=== PATIENT | male | born 1975 | race American Indian/Alaskan Native ===

== ENCOUNTER 2021-07-13 16:38 | Emergency (ER) | payer OTHER ==
[2021-07-13 16:50] VITALS: BP 154/90
[2021-07-13] MEDS ORDERED: SODIUM CHLORIDE 0.9% 100 ML IVPB IV ONE (17:10)
--- NOTE | 2021-07-13 17:10 | Event Note ---
ED Screening Note Date of service: 07/13/21 Time: 17:08 ED Screening Note: 45-year-old -Pol[place] male with a past medical history of hypertension diabetes presents to the emergency room for a abscess to the left shoulder with pain. Patient states is been there for 3 weeks. Patient presents with fever tachycardic. This initial assessment/diagnostic orders/clinical plan/treatment(s) is/are subject to change based on patients health status, clinical progression and re- assessment by fellow clinical providers in the ED. Further treatment and workup at subsequent clinical providers discretion. Patient/guardian urged not to elope from the ED as their condition may be serious if not clinically assessed and managed. Initial orders include: Initial sepsis protocol has been ordered.
[2021-07-13] MEDS ORDERED: cephALEXin 500 MG CAP PO ONE (17:16)
[2021-07-13] MEDS ORDERED: SULFAMETHOXAZOLE/TRIMETHOPRIM 800/160MG DS TAB PO ONE (17:16)
[2021-07-13] MEDS ORDERED: TETANUS,DIPH,PERTUSS(ACELL) VACCINE 0.5 ML SYRINGE IM ONE (17:18)
--- NOTE | 2021-07-13 17:21 | Emergency Department Report ---
- General Chief complaint: Skin/Abscess/Foreign Body Stated complaint: BUMP ON LEFT SHOULDER PAINFUL Time Seen by Provider: 07/13/21 17:11 Source: patient Mode of arrival: Ambulatory Limitations: No Limitations - History of Present Illness Initial comments: Chief complaint: Abscess left shoulder HPI: This 45-year-old male history of insulin-dependent diabetes mellitus who presents with left upper back abscess which has been present for 2 weeks. No treatment attempted. Patient works as a long-tier truck driver. He wanted to wait until he returned to [place] before seeking treatment. Unknown last tetanus booster. He denies fever chills. Denies malaise. He does feels a pressure heaviness at the left upper back. No previous history of abscess. MD complaint: abscess/boil -: Gradual, week(s) (2 weeks) Tetanus Up to Date: unsure Location: back (Left upper back) Severity: moderate Quality: aching, dull Consistency: constant Improves with: none Worsens with: palpation Context: other (History of diabetes mellitus, lesion has been present for 2 weeks) Associated symptoms: denies other symptoms Treatments Prior to Arrival: none - Related Data Previous Rx's Medication Instructions Recorded Last Taken Type Acetaminophen/Codeine [Tylenol 1 tab PO Q6H PRN #10 tab 02/04/19 Unknown Rx /Codeine # 3 tab] Ibuprofen [Motrin 800 MG tab] 800 mg PO Q8HR PRN #14 tablet 02/04/19 Unknown Rx Penicillin Vk [Veetids TAB] 500 mg PO QID 7 Days #56 tablet 02/04/19 Unknown Rx Sulfamethoxazole/Trimethoprim 1 each PO BID 10 Days #20 tablet 07/13/21 Unknown Rx [Bactrim DS TAB] cephALEXin [Keflex] 500 mg PO QID 10 Days #40 capsule 07/13/21 Unknown Rx Allergies Allergy/AdvReac Type Severity Reaction Status Date / Time morphine Allergy Hives Verified 02/04/19 16:19 Abscess Boil HPI - HPI Chief Complaint: Skin/Abscess/Foreign Body Stated Complaint: BUMP ON LEFT SHOULDER PAINFUL Time Seen by Provider: 07/13/21 17:11 Home Medications: Previous Rx's Medication Instructions Recorded Last Taken Type Acetaminophen/Codeine [Tylenol 1 tab PO Q6H PRN #10 tab 02/04/19 Unknown Rx /Codeine # 3 tab] Ibuprofen [Motrin 800 MG tab] 800 mg PO Q8HR PRN #14 tablet 02/04/19 Unknown Rx Penicillin Vk [Veetids TAB] 500 mg PO QID 7 Days #56 tablet 02/04/19 Unknown Rx Sulfamethoxazole/Trimethoprim 1 each PO BID 10 Days #20 tablet 07/13/21 Unknown Rx [Bactrim DS TAB] cephALEXin [Keflex] 500 mg PO QID 10 Days #40 capsule 07/13/21 Unknown Rx Allergies/Adverse Reactions: Allergies Allergy/AdvReac Type Severity Reaction Status Date / Time morphine Allergy Hives Verified 02/04/19 16:19 ED Review of Systems ROS: Stated complaint: BUMP ON LEFT SHOULDER PAINFUL Other details as noted in HPI Comment: All other systems reviewed and negative Constitutional: denies: chills, fever, malaise Cardiovascular: denies: chest pain Gastrointestinal: denies: abdominal pain, nausea, vomiting, diarrhea Neurological: denies: headache, weakness ED Past Medical Hx - Past Medical History Previous Medical History?: Yes Hx Diabetes: Yes - Surgical History Past Surgical History?: Yes Additional Surgical History: left arm - Social History Smoking Status: Never Smoker Substance Use Type: None - Medications Home Medications: Home Medications Medication Instructions Recorded Confirmed Last Taken Type Acetaminophen/Codeine [Tylenol 1 tab PO Q6H PRN #10 tab 02/04/19 Unknown Rx /Codeine # 3 tab] Ibuprofen [Motrin 800 MG tab] 800 mg PO Q8HR PRN #14 tablet 02/04/19 Unknown Rx Penicillin Vk [Veetids TAB] 500 mg PO QID 7 Days #56 tablet 02/04/19 Unknown Rx Sulfamethoxazole/Trimethoprim 1 each PO BID 10 Days #20 tablet 07/13/21 Unknown Rx [Bactrim DS TAB] cephALEXin [Keflex] 500 mg PO QID 10 Days #40 capsule 07/13/21 Unknown Rx ED Physical Exam - General Limitations: No Limitations General appearance: alert, in no apparent distress - Head Head exam: Present: atraumatic, normocephalic - Eye Eye exam: Present: normal appearance - ENT ENT exam: Present: mucous membranes moist - Neck Neck exam: Present: normal inspection, full ROM - Respiratory Respiratory exam: Present: normal lung sounds bilaterally. Absent: respiratory distress, wheezes, rales, rhonchi - Cardiovascular Cardiovascular Exam: Present: regular rate, normal rhythm, normal heart sounds. Absent: systolic murmur, diastolic murmur, rubs, gallop - GI/Abdominal GI/Abdominal exam: Present: soft, normal bowel sounds - Rectal Rectal exam: Present: deferred - Extremities Exam Extremities exam: Present: normal inspection - Neurological Exam Neurological exam: Present: alert, oriented X3 - Psychiatric Psychiatric exam: Present: normal affect, normal mood - Skin Skin exam: Present: other (Left upper back: Over the scapula there is a 8 cm hyperpigmented indurated area slightly raised with 2 cm halo of surrounding erythema) ED Course Vital Signs 07/13/21 16:49 Temperature 102.7 F H Pulse Rate 115 H Respiratory 20 Rate Blood Pressure 154/90 [Right] O2 Sat by Pulse 97 Oximetry - I & D Left Back Type of Procedure: Complex Blade Size: 11 I & D Procedure: betadine prep Progress: Verbal informed consent obtained: My colleague assisted. Total of 10 mL 1% lidocaine without epinephrine injected. 3 cm vertical incision. Copious amount of pus expressed approximately 30 mL. I used tissue spreaders to break up inoculations with more expression of pus. 10cm iodoform quarter-inch packing with sterile dressing and tape covering. ED Medical Decision Making - Medical Decision Making Left upper back abscess history of insulin-dependent diabetes: Tetanus booster provided. Patient given p.o. antibiotics Bactrim Keflex in the emergency department. Significant amount of pus expressed 30 cc in total. Patient will return in 3 days for packing change. 10 days of antibiotics prescribed. Considering size and history of diabetes mellitus, antibiotic therapy is indicated. Critical care attestation.: If time is entered above; I have spent that time in minutes in the direct care of this critically ill patient, excluding procedure time. ED Disposition Clinical Impression: Back abscess, Insulin dependent diabetes mellitus Disposition: HOME / SELF CARE / HOMELESS Is pt being admited?: No Does the pt Need Aspirin: No Condition: Stable Instructions: Diabetes Mellitus Type 2 in Adults (ED), Skin Abscess, Incision and Drainage, Care After Additional Instructions: Please return in 3 days for packing change. Prescriptions: Sulfamethoxazole/Trimethoprim [Bactrim DS TAB] 1 each PO BID 10 Days #20 tablet cephALEXin [Keflex] 500 mg PO QID 10 Days #40 capsule Referrals: MAGNO RAMOS MD [Staff Physician] - 7-10 days
[2021-07-13] MEDS: IBUPROFEN 800 MG TAB PO ONE ×2 (17:54→18:26)
== END 2021-07-13 18:35 | disposition home or self-care (01) ==
LOC: ED 16:38
DX: L02.212 Cutaneous abscess of back [any part, except buttock and flank] (principal); E10.9 Type 1 diabetes mellitus without complications; Z98.890 Other specified postprocedural states; Z88.5 Allergy status to narcotic agent; Z79.899 Other long term (current) drug therapy
CPT/HCPCS: 82962; 90471; 90715; 99283

== ENCOUNTER 2021-07-16 16:58 | Emergency (ER) | payer OTHER ==
[2021-07-16 17:15] VITALS: BP 140/88
--- NOTE | 2021-07-16 17:53 | Emergency Department Report ---
ED General Adult HPI - General Chief complaint: Laceration/Recheck/Suture Stated complaint: recheck cyst Time Seen by Provider: 07/16/21 17:15 Source: patient Mode of arrival: Ambulatory Limitations: No Limitations - History of Present Illness Initial comments: Patient presents to the ER today for abscess recheck. Patient had an I&D about 3 days ago to an abscess located in his left upper back. Patient states that area was packed, and he was told that to return to have it rechecked. He states that he has been compliant with taking his antibiotics. He states that the area feels much better. He denies any fever or chills since being seen or any worsening symptoms. MD Complaint: Abscess recheck Severity scale (0 -10): 0 - Related Data Previous Rx's Medication Instructions Recorded Last Taken Type Acetaminophen/Codeine [Tylenol 1 tab PO Q6H PRN #10 tab 02/04/19 Unknown Rx /Codeine # 3 tab] Ibuprofen [Motrin 800 MG tab] 800 mg PO Q8HR PRN #14 tablet 02/04/19 Unknown Rx Penicillin Vk [Veetids TAB] 500 mg PO QID 7 Days #56 tablet 02/04/19 Unknown Rx Sulfamethoxazole/Trimethoprim 1 each PO BID 10 Days #20 tablet 07/13/21 Unknown Rx [Bactrim DS TAB] cephALEXin [Keflex] 500 mg PO QID 10 Days #40 capsule 07/13/21 Unknown Rx Allergies Allergy/AdvReac Type Severity Reaction Status Date / Time morphine Allergy Hives Verified 07/16/21 17:03 ED Review of Systems ROS: Stated complaint: recheck cyst Other details as noted in HPI Comment: All other systems reviewed and negative Constitutional: denies: chills, fever Eyes: denies: eye pain, eye discharge, vision change ENT: denies: ear pain, throat pain Respiratory: denies: cough, shortness of breath, SOB with exertion, SOB at rest, wheezing Cardiovascular: denies: chest pain, palpitations, dyspnea on exertion, edema, syncope, paroxysmal nocturnal dyspnea Gastrointestinal: denies: abdominal pain, nausea, diarrhea, constipation, hematemesis, hematochezia Genitourinary: denies: urgency, dysuria, hematuria, discharge, testicular pain, testicular mass Musculoskeletal: denies: back pain, joint swelling, arthralgia Skin: other (Abscess status post I&D). denies: rash, lesions, change in color, change in hair/nails, pruritus Neurological: denies: headache, weakness, numbness, paresthesias, confusion, abnormal gait, vertigo Psychiatric: denies: anxiety, depression, auditory hallucinations, visual hallucinations, homicidal thoughts, suicidal thoughts Hematological/Lymphatic: denies: easy bleeding, easy bruising ED Past Medical Hx - Past Medical History Hx Diabetes: Yes - Surgical History Additional Surgical History: left arm - Social History Smoking Status: Never Smoker Substance Use Type: None - Medications Home Medications: Home Medications Medication Instructions Recorded Confirmed Last Taken Type Acetaminophen/Codeine [Tylenol 1 tab PO Q6H PRN #10 tab 02/04/19 Unknown Rx /Codeine # 3 tab] Ibuprofen [Motrin 800 MG tab] 800 mg PO Q8HR PRN #14 tablet 02/04/19 Unknown Rx Penicillin Vk [Veetids TAB] 500 mg PO QID 7 Days #56 tablet 02/04/19 Unknown Rx Sulfamethoxazole/Trimethoprim 1 each PO BID 10 Days #20 tablet 07/13/21 Unknown Rx [Bactrim DS TAB] cephALEXin [Keflex] 500 mg PO QID 10 Days #40 capsule 07/13/21 Unknown Rx ED Physical Exam - General Limitations: No Limitations General appearance: alert, in no apparent distress - Head Head exam: Present: atraumatic, normocephalic, normal inspection - Eye Eye exam: Present: normal appearance, PERRL, EOMI Pupils: Present: normal accommodation - Neck Neck exam: Present: normal inspection, full ROM - Respiratory Respiratory exam: Present: normal lung sounds bilaterally. Absent: respiratory distress, wheezes, rales, rhonchi - Cardiovascular Cardiovascular Exam: Present: regular rate, normal rhythm, normal heart sounds - Back Exam Back exam: Present: other (Incised abscess noted to left upper back. Packing still in place and removed by me. Scant amount of drainage noted but overall wound appears to be healing well without any signs of worsening infection.) ED Course Vital Signs 07/16/21 17:03 Temperature 97.4 F L Pulse Rate 90 Respiratory 16 Rate Blood Pressure 140/88 [Right] O2 Sat by Pulse 90 Oximetry Critical care attestation.: If time is entered above; I have spent that time in minutes in the direct care of this critically ill patient, excluding procedure time. ED Disposition Clinical Impression: Abscess re-check Disposition: 01 HOME / SELF CARE / HOMELESS Is pt being admited?: No Does the pt Need Aspirin: No Condition: Stable Instructions: Wound Care, Adult Additional Instructions: Continue to keep the area clean daily with soap and water. Dry well after each cleaning. Put a dressing over the area. There is daily until he heals. It is important that you complete all antibiotics even if your symptoms are getting better. Follow-up with your PCP as needed. Return to the ER if anything changes or worsens. Referrals: PRIMARY CARE, [Referring] - 3-5 Days Time of Disposition: 17:53
== END 2021-07-16 18:16 | disposition home or self-care (01) ==
LOC: ED 16:58
DX: Z48.01 Encounter for change or removal of surgical wound dressing (principal); E11.9 Type 2 diabetes mellitus without complications; Z88.5 Allergy status to narcotic agent; Z79.899 Other long term (current) drug therapy
CPT/HCPCS: 99281

== ENCOUNTER 2022-03-01 10:54 | Emergency (ER) | payer OTHER ==
[2022-03-01] MEDS ORDERED: ACETAMINOPHEN 500 MG TAB PO ONE (13:21)
[2022-03-01] MEDS ORDERED: AMOXICILLIN/K CLAV 875/125MG TAB PO ONE (13:21)
--- NOTE | 2022-03-01 14:03 | Emergency Department Report ---
ED General Adult HPI - General Chief complaint: Earache Stated complaint: RT EAR ACHE Source: patient Mode of arrival: Ambulatory Limitations: No Limitations - History of Present Illness Initial comments: Patient is a 46-year-old -[place] male with a history of [id number] diabetes who presents to the ED with complaint of acute onset persistent right ear pain for the last 4 days. Patient states that the pain has been constant and persistent and has worsened in the last 2 days. Patient states that been taking [id number] medications for pain with no relief. Patient denies dizziness, syncope, hearing loss, fever, chills, cough, traumatic injury, nausea and vomiting, headache, nasal and sinus congestion or sore throat and neck pain. MD Complaint: right ear pain -: Sudden, days(s) (4) Location: face (right ear) Radiation: non-radiation Severity scale (0 -10): 10 Quality: aching, sharp Consistency: constant Improves with: none Worsens with: none Associated Symptoms: denies other symptoms. denies: confusion, chest pain, diaphoresis, fever/chills, headaches, loss of appetite, malaise, nausea/v omiting, rash, seizure, shortness of breath, syncope, weakness Treatments Prior to Arrival: none - Related Data Previous Rx's Medication Instructions Recorded Last Taken Type Acetaminophen/Codeine [Tylenol 1 tab PO Q6H PRN #10 tab 02/04/19 Unknown Rx /Codeine # 3 tab] Ibuprofen [Motrin 800 MG tab] 800 mg PO Q8HR PRN #14 tablet 02/04/19 Unknown Rx Penicillin Vk [Veetids TAB] 500 mg PO QID 7 Days #56 tablet 02/04/19 Unknown Rx Sulfamethoxazole/Trimethoprim 1 each PO BID 10 Days #20 tablet 07/13/21 Unknown Rx [Bactrim DS TAB] cephALEXin [Keflex] 500 mg PO QID 10 Days #40 capsule 07/13/21 Unknown Rx Acetaminophen [Tylenol] 500 mg PO Q6HR PRN #40 tablet 03/01/22 Unknown Rx Amoxicillin/K Clav Tab [Augmentin 1 tab PO Q12HR #20 tab 03/01/22 Unknown Rx 875 mg] Ofloxacin 0.3% [Floxin 0.3% Otic] 3 drop OT Q12H #5 ml 03/01/22 Unknown Rx traMADoL [Ultram] 50 mg PO Q6HR PRN #12 tablet 03/01/22 Unknown Rx Allergies Allergy/AdvReac Type Severity Reaction Status Date / Time morphine Allergy Hives Verified 07/16/21 17:03 ED Review of Systems ROS: Stated complaint: RT EAR ACHE Other details as noted in HPI Constitutional: denies: chills, fever Eyes: denies: eye pain, eye discharge, vision change ENT: ear pain (Right ear pain). denies: throat pain Respiratory: denies: cough, shortness of breath, wheezing Cardiovascular: denies: chest pain, palpitations Endocrine: no symptoms reported Gastrointestinal: denies: abdominal pain, nausea, vomiting, diarrhea Genitourinary: denies: urgency, dysuria Musculoskeletal: denies: back pain, joint swelling, arthralgia Skin: denies: rash, lesions Neurological: denies: headache, weakness, paresthesias Psychiatric: denies: anxiety, depression Hematological/Lymphatic: denies: easy bleeding, easy bruising ED Past Medical Hx - Past Medical History Previous Medical History?: Yes Hx Diabetes: Yes - Surgical History Past Surgical History?: Yes Additional Surgical History: left arm - Social History Smoking Status: Never Smoker Substance Use Type: None - Medications Home Medications: Home Medications Medication Instructions Recorded Confirmed Last Taken Type Acetaminophen/Codeine [Tylenol 1 tab PO Q6H PRN #10 tab 02/04/19 Unknown Rx /Codeine # 3 tab] Ibuprofen [Motrin 800 MG tab] 800 mg PO Q8HR PRN #14 tablet 02/04/19 Unknown Rx Penicillin Vk [Veetids TAB] 500 mg PO QID 7 Days #56 tablet 02/04/19 Unknown Rx Sulfamethoxazole/Trimethoprim 1 each PO BID 10 Days #20 tablet 07/13/21 Unknown Rx [Bactrim DS TAB] cephALEXin [Keflex] 500 mg PO QID 10 Days #40 capsule 07/13/21 Unknown Rx Acetaminophen [Tylenol] 500 mg PO Q6HR PRN #40 tablet 03/01/22 Unknown Rx Amoxicillin/K Clav Tab [Augmentin 1 tab PO Q12HR #20 tab 03/01/22 Unknown Rx 875 mg] Ofloxacin 0.3% [Floxin 0.3% Otic] 3 drop OT Q12H #5 ml 03/01/22 Unknown Rx traMADoL [Ultram] 50 mg PO Q6HR PRN #12 tablet 03/01/22 Unknown Rx ED Physical Exam - General Limitations: No Limitations General appearance: alert, in no apparent distress - Head Head exam: Present: atraumatic, normocephalic, normal inspection - Eye Eye exam: Present: normal appearance, PERRL, EOMI Pupils: Present: normal accommodation - ENT ENT exam: Present: normal orophraynx, mucous membranes moist, other (Mild erythematous right ear canal with bulging erythematous right tympanic membrane) - Neck Neck exam: Present: normal inspection, full ROM. Absent: tenderness, lymphadenopathy - Respiratory Respiratory exam: Present: normal lung sounds bilaterally. Absent: respiratory distress, wheezes, rales, rhonchi, chest wall tenderness, accessory muscle use, decreased breath sounds, prolonged expiratory - Cardiovascular Cardiovascular Exam: Present: regular rate, normal rhythm, normal heart sounds. Absent: systolic murmur, diastolic murmur, rubs, gallop - GI/Abdominal GI/Abdominal exam: Present: soft, normal bowel sounds. Absent: tenderness, rebound, hyperactive bowel sounds, hypoactive bowel sounds, organomegaly, mass - Extremities Exam Extremities exam: Present: normal inspection, full ROM, normal capillary refill. Absent: tenderness, pedal edema, joint swelling - Back Exam Back exam: Present: normal inspection, full ROM. Absent: tenderness, CVA tenderness (R), CVA tenderness (L), muscle spasm, paraspinal tenderness, vertebral tenderness - Neurological Exam Neurological exam: Present: alert, oriented X3, CN II-XII intact, normal gait, reflexes normal - Psychiatric Psychiatric exam: Present: normal affect, normal mood - Skin Skin exam: Present: warm, dry, intact, normal color. Absent: rash ED Course Vital Signs 03/01/22 11:08 Temperature 98.1 F Pulse Rate 92 H Respiratory 18 Rate Blood Pressure 124/74 [Right] O2 Sat by Pulse 98 Oximetry ED Medical Decision Making - Medical Decision Making This is a 46-year-old -[place] male with a history of msw-wepcjgn-qevmideol diabetes who presents to the ED with complaint of acute onset persistent right ear pain for the last 4 days. Patient states that the pain has been constant and persistent and has worsened in the last 2 days. Patient states that been taking [id number] medications for pain with no relief. In the ED, patient is alert and oriented x3 and is not in any distress. Patient however appears to be in pain. Patient was treated for pain in the ED. Patient also received initial oral antibiotics in the ED. On reevaluation, patient's pain is well controlled medication. Patient will discharge home on pain medications and antibiotics based on the history and physical exam finding s. Patient is advised to follow-up with his primary care physician in 7 to 10 days for reevaluation or return to the ED immediately if symptoms get worse. - Differential Diagnosis Otitis media with effusion; otitis externa; URI; Critical care attestation.: If time is entered above; I have spent that time in minutes in the direct care of this critically ill patient, excluding procedure time. ED Disposition Clinical Impression: Acute otitis media with effusion of right ear Disposition: HOME / SELF CARE / HOMELESS Is pt being admited?: No Does the pt Need Aspirin: No Condition: Stable Instructions: Otitis Media, Adult, [id number], Ear Drops, Adult, [id number] Additional Instructions: Take medication with food, drink plenty of fluids, follow-up with your primary care physician in 7 to 10 days for reevaluation. Return to the ED immediately if symptoms get worse. Prescriptions: Acetaminophen [Tylenol] 500 mg PO Q6HR PRN #40 tablet PRN Reason: Pain , Severe (7-10) Amoxicillin/K Clav Tab [Augmentin 875 mg] 1 tab PO Q12HR #20 tab Ofloxacin 0.3% [Floxin 0.3% Otic] 3 drop OT Q12H #5 ml traMADoL [Ultram] 50 mg PO Q6HR PRN #12 tablet PRN Reason: Pain Referrals: [facility] [Provider Group] - 7-10 days Forms: Work/School Release Form(ED) Time of Disposition: 14:02 Print Language: BULGARIAN
[2022-03-01 16:35] VITALS: BP 123/56
== END 2022-03-01 17:31 | disposition home or self-care (01) ==
LOC: ED 10:54
DX: H65.91 Unspecified nonsuppurative otitis media, right ear (principal); E11.9 Type 2 diabetes mellitus without complications; Z91.09 Other allergy status, other than to drugs and biological substances; Z79.899 Other long term (current) drug therapy
CPT/HCPCS: 99282